=== PATIENT | female | born 1970 | race Caucasian/White ===

== ENCOUNTER 2018-05-20 20:12 | Observation (INO) | payer OTHER, BC ==
[2018-05-20 20:30] VITALS: BMI 29.1
--- NOTE | 2018-05-20 21:00 | ED PDOC ---
Arrival/HPI - General Chief Complaint: High Blood Pressure Time Seen by Provider: 05/20/18 20:18 Historian: Patient - History of Present Illness Narrative History of Present Illness (Text): 05/20/18 21:00 47 year old female, with no significant past medical history, presents to emergency department headache since this morning. Patient reports headache began while at work, which she describes to be intermittent and having a "flowing" sensation with occasional pinches to the top of the head. She states that her blood pressure was elevated when she checked at home around 5 pm and also notes tingling to the extremities. Patient states she is currently experiencing feelings of anxiety but denies any nausea, vomiting, chest pain, blurred vision, or any other complaints. Patient notes she is not using any medications. Time/Duration: Other (morning) Symptom Onset: Gradual Symptom Course: Unchanged Activities at Onset: Light Context: Home Past Medical History - Provider Review Nursing Documentation Reviewed: Yes - Psychiatric Hx Substance Use: No - Surgical History Hx Section: Yes (2002 & 2008) Other/Comment: Lap Band. Family/Social History - Physician Review Nursing Documentation Reviewed: Yes Family/Social History: Unknown Family HX Smoking Status: Never Smoked Hx Alcohol Use: No Hx Substance Use: No Allergies/Home Meds Allergies/Adverse Reactions: Allergies No Known Allergies Allergy (Verified 05/20/18 20:30) Home Medications: Home Meds Medication Instructions Recorded Confirmed No Known Home Med 05/20/18 05/20/18 Review of Systems - Physician Review All systems were reviewed & negative as marked: Yes - Review of Systems Constitutional: absent: Fevers Eyes: absent: Vision Changes Respiratory: absent: SOB, Cough Cardiovascular: absent: Chest Pain Gastrointestinal: absent: Abdominal Pain, Nausea, Vomiting Musculoskeletal: Other (tingling in hands, shoulder, feet ). absent: Back Pain, Neck Pain Skin: absent: Rash Neurological: Headache (top of head ) Physical Exam - Physical Exam Narrative Physical Exam (Text): 05/20/18 21:14 Gen: VS reviewed, alert, well developed, well nourished, nontoxic, mild distress Eye: EOMI, PERRL Neck: no JVD, supple, no adenopathy CV: regular rate, regular rhythm, no rubs,no murmur, S1, S2 Pulm: no distress, clear to auscultation, no wheeze, no rhonchi, breath sounds equal, no rales Abd: soft, nontender, no guarding, no rebound, no rigidity Ext: no edema Skin: good color, no rash, no cyanosis Psych: responds appropriately to questions, normal affect Neuro: oriented x3, CN2-12 intact grossly, motor intact, sensation intact Vital Signs Reviewed: Yes Vital Signs Temp Pulse Resp BP Pulse Ox 05/20/18 20:30 98.9 F 111 H 18 196/139 H 96 Temperature: Afebrile Blood Pressure: Normal Pulse: Regular Respiratory Rate: Normal Appearance: Positive for: Well-Appearing, Non-Toxic, Comfortable Pain Distress: None Mental Status: Positive for: Alert and Oriented X 3 Medical Decision Making ED Course and Treatment: 05/20/18 21:15 Impression: 47 year old female presents to emergency department for headache and high blood pressure. Plan: -- Reassess and disposition Prior Visits: Notes and results from previous visits were reviewed. Progress Notes: 05/21/18 01:04 -patient was seen for hypertension and headache. CT of the head was done to rule out ICH. Antihypertensives were ordered which lowered the blood pressure but after the second dose of hydralazine, the patient's heart rate increased to a sinus tachycardia. This is likely physiologic as a reflex tachcyardia. -admit accepted by dr. marcus. patient to be admitted for uncontrolled hypertension. consult to cardiology dr. richter. -incidentally, there is a sinus opacification seen on CT head. there is no associated fever or sinus tenderness to suggest an acute sinusitis. Patient is aware of this finding and understands to follow up with a ear,nose,throat doctor. 05/21/18 01:06 05/21/18 02:00 - RAD Interpretation Narrative RAD Interpretations (Text): 05/20/18 23:03 CT Head IMPRESSION: 1. No acute intracranial abnormality. 2. Total opacification of the right maxillary sinus thought compatible with chronic sinusitis or underlying soft tissue masss; such as mucous retention cyst or polyp. Electronically signed on May 20, 2018 11:03:53 PM EDT by: Ranulfo Garcia M.D., ANICETO Certified By [facility] [employer] [facility] Fellowship Trained MRI and CT Specialist Manager Ems: Radiologist - EKG Interpretation EKG Interpretation (Text): 05/21/18 00:37 21:14: nsr at 93 bpm, nml qrs, nml axis, lvh, no acute sttw abn Interpreted by ED Physician: Yes - Scribe Statement The provider has reviewed the documentation as recorded by the Scribe Trent Kim All medical record entries made by the Scribe were at my direction and personally dictated by me. I have reviewed the chart and agree that the record accurately reflects my personal performance of the history, physical exam, medical decision making, and the department course for this patient. I have also personally directed, reviewed, and agree with the discharge instructions and disposition. Disposition/Present on Arrival - Present on Arrival Any Indicators Present on Arrival: No History of DVT/PE: No History of Uncontrolled Diabetes: No Urinary Catheter: No History of Decub. Ulcer: No History Surgical Site Infection Following: None - Disposition Have Diagnosis and Disposition been Completed?: Yes Diagnosis: Hypertension Disposition: HOSPITALIZED Disposition Time: 01:06 Patient Plan: Admission Patient Problems: Current Active Problems Problem Status Onset Hypertension Acute Condition: GUARDED
[2018-05-20 21:20] LABS: BASO # 0.02 K/mm3 (0.0-2.0); BASO % 0.3 % (0.0-3.0); EOS # 0.1 (0.0-0.7); EOS % 1.9 % (1.5-5.0); HEMOGLOBIN 11.9 g/dL (12.0-16.0); LYMPH # 2.9 (1.2-3.4); LYMPH % 43.4 % (22.0-35.0); MEAN CELL VOLUME 78.4 fl (80.0-105.0); MEAN CORPUSCULAR HEMOGLOBIN 24.5 pg (25.0-35.0); MEAN CORPUSCULAR HGB CONC 31.3 g/dl (31.0-37.0); MEAN PLATELET VOLUME 9.5 fl (7.0-11.0); MONO # 0.4 (0.1-0.6); MONO % 5.6 % (1.0-6.0); RBC 4.85 10^6/uL (3.5-6.1); RED CELL DISTRIBUTION WIDTH 13.5 % (11.5-14.5); WHITE BLOOD COUNT 6.8 10^3/uL (4.5-11.0)
[2018-05-20 21:32] LABS: ALB/GLOB RATIO 1.1 (1.1-1.8); ALBUMIN 4.5 g/dL (3.0-4.8); ALT/SGPT 23 U/L (7-56); AST/SGOT 25 U/L (14-36); BLOOD UREA NITROGEN 9 mg/dL (7-21); CALCIUM 9.4 mg/dL (8.4-10.5); GFR NON-AFRICAN AMERICAN > 60
[2018-05-20 21:43] LABS: TROPONIN I < 0.01 ng/mL
--- NOTE | 2018-05-21 09:26 | CT ---
Date of service: 05/20/2018 PROCEDURE: CT HEAD WITHOUT CONTRAST. HISTORY: headache COMPARISON: None available. TECHNIQUE: Axial computed tomography images were obtained through the head/brain without intravenous contrast. Radiation dose: Total exam DLP = 967.47 mGy-cm. This CT exam was performed using one or more of the following dose reduction techniques: Automated exposure control, adjustment of the mA and/or kV according to patient size, and/or use of iterative reconstruction technique. FINDINGS: HEMORRHAGE: No intracranial hemorrhage. BRAIN: Moss-white matter differentiation is preserved. There is no mass, mass effect or abnormal extra-axial fluid collection. There is no territorial infarction. The midline sagittal structures are normal. VENTRICLES: The ventricles are normal in size, shape and configuration. CALVARIUM: There is no calvarial fracture or extracranial soft tissue swelling. There is mild hyperostosis frontalis interna. PARANASAL SINUSES: There is a large low-density soft tissue mass nearly completely acute finding the right maxillary sinus with mild expansion of the right maxillary sinus. The remaining included paranasal sinuses are clear. MASTOID AIR CELLS: Predominantly clear. OTHER FINDINGS: None. IMPRESSION: No acute intracranial abnormality. Large predominantly cystic lesion near completely acute moody the right maxillary sinus with expansion of the maxillary sinus which likely represents a retention cyst or mucosal. Clinical follow-up is advised. A preliminary report was provided by [facility]. A preliminary report was provided by [facility].
[2018-05-21 09:56] LABS: BLOOD UREA NITROGEN 10 mg/dL (7-21); CALCIUM 9.5 mg/dL (8.4-10.5); GFR NON-AFRICAN AMERICAN > 60
[2018-05-21 09:58] LABS: HEMOGLOBIN 12.3 g/dL (12.0-16.0); MEAN CELL VOLUME 79.2 fl (80.0-105.0); MEAN CORPUSCULAR HEMOGLOBIN 24.4 pg (25.0-35.0); MEAN CORPUSCULAR HGB CONC 30.8 g/dl (31.0-37.0); MEAN PLATELET VOLUME 9.7 fl (7.0-11.0); RBC 5.04 10^6/uL (3.5-6.1); RED CELL DISTRIBUTION WIDTH 13.7 % (11.5-14.5); WHITE BLOOD COUNT 7.8 10^3/uL (4.5-11.0)
--- NOTE | 2018-05-21 14:49 | CARD ---
APPROVED REPORT Date of service: 05/20/2018 EKG Measurement Heart [id number] <Conclusion> Sinus tachycardia Moderate voltage criteria for LVH, may be normal variant Cannot rule out Septal infarct, age undetermined Abnormal ECG
--- NOTE | 2018-05-21 14:53 | CARD ---
APPROVED REPORT Date of service: 05/20/2018 EKG Measurement Heart [id number] <Conclusion> Normal sinus rhythm Moderate voltage criteria for LVH, may be normal variant Cannot rule out Septal infarct, age undetermined Abnormal ECG
--- NOTE | 2018-05-21 17:15 | HP ---
DATE OF EXAM: 05/21/2018 HISTORY OF PRESENT ILLNESS: She is a nice 47-year-old female, who presented to the emergency room with severe headache that was intermittent, flowing pain to the top of her head. It has had about 24 hours before she came to the emergency room. Also, she is quite anxious. No nauseousness. No substance abuse. She has a in 2002 and 2008 and she had lap band surgery. FAMILY HISTORY: She has no family history. SOCIAL HISTORY: Nonsmoker. No drinking. No drugs. ALLERGIES: NO KNOWN DRUG ALLERGIES. MEDICATIONS: She does not take any medications at this time. She told me at one time, she took a blood pressure pill when she was , but not since then. REVIEW OF SYSTEMS: She has no fevers. No vision changes. No shortness of breath or cough. No chest pain. No abdominal pain. No nausea or vomiting. Questionable tingling in the hands, shoulders and feet, but no back pain or neck pain. She has had headache on the top of her head when she came in, it is better now. No rashes that she knows of. PHYSICAL EXAMINATION GENERAL: She is resting comfortably in bed. She gotten 2 to 3 doses of IV medications to lower the blood pressure. I started her on Norvasc. She is alert, well developed, well nourished, nontoxic, mild distress with the headache. VITAL SIGNS: She has a 98.9 temperature, 111 pulse, 18 respiratory rate, 196/139 blood pressure when she came in, 96% O2 sat. HEENT: Extraocular muscles are intact. Pupils equal and reactive to light. Throat is moist. NECK: Supple. HEART: Regular rate. Normal S1 and S2. LUNGS: Decreased breath sounds, but clear to auscultation. No wheezes, no rhonchi, no rales. ABDOMEN: Soft, nontender. Positive bowel sounds. Obese. No guarding, no rebound, no CVA tenderness. EXTREMITIES: With no edema. SKIN: For the most part, it is clear. No rashes or ulcers. NEUROLOGIC: Alert and oriented x3. Cranial nerves II-XII are grossly intact. Thyroid midline. No palpable appreciable lymphadenopathy. DIAGNOSTIC DATA: She had multiple tests done. CAT scan of the head interestingly enough showed no acute intracranial abnormality, large predominantly cystic lesion near completely acute pain in the right maxillary sinus into the maxillary sinus, I called ENT for their opinion. Also, she has 7.8 white count, 12.3 hemoglobin, 39.9 hematocrit with 302 platelets. A 142 sodium, potassium 3.7, BUN 10, creatinine 0.5, GFR is greater than 60, sugars 226, elevated. Calcium is 9.5, troponin I is less than 0.01. I called an ENT and Cardiology, waiting for Cardiology to see her if she had multiple doses of and Lopressor, I have started her on Norvasc. She plans to stay over one more night. I am hoping she will improve enough that she will be discharged tomorrow. Right now, she is here with elevated blood pressure, sinus cyst. Will see with Cardiology and ENT . Tex Krishnan DO MTDEvens
[2018-05-22 00:16] VITALS: O2SAT 98
--- NOTE | 2018-05-22 02:29 | CON ---
DATE OF CONSULTATION: 05/21/2018 This is a followup of an Endocrine Cardiology Consultation. REASON FOR CONSULTATION: Uncontrolled hypertension. HISTORY OF PRESENT ILLNESS: The patient is a 47-year-old female, who was diagnosed with hypertension in 2009, , and was treated for a few months and was taken off her blood pressure medications. She presented because of a headache, which is confined to the top part of the patient's head. No occipital headache or frontal headache. The patient reported uncontrolled hypertension. She denies any dizziness or blurry vision. The patient denies any nausea or vomiting. The patient is unaware of any prior cardiac history. SOCIAL HISTORY: Nonsmoker, nondrinker. MEDICATIONS: Norvasc 5 mg once a day, Tylenol 650 mg every 6 hours p.r.n. PHYSICAL EXAMINATION: GENERAL: The patient is a middle-aged female, who does not appear to be in acute distress. VITAL SIGNS: Blood pressure 126/79, heart rate 96, temperature 98, respirations 18. HEENT: Normocephalic. CHEST: Clear. HEART: S1 and S2 regular. ABDOMEN: Soft. EXTREMITIES: No edema. LABORATORY DATA: Today's hemoglobin and hematocrit are 12.3 and 39.5; white count and platelet count are within normal limits. SMA-7 is within normal limits except for a glucose of 126 and a creatinine of 0.5. Head CT scan without contrast, no acute intracranial abnormality, large predominately cystic lesion, nearly completely in the right maxillary sinus with expansion of the maxillary sinus, which likely represents a retention cyst. EKG revealed sinus rhythm with moderate voltage criteria for LVH. ASSESSMENT: 1. Uncontrolled hypertension. The initial blood pressure on admission was 196/89. 2. Diabetes mellitus. 3. A large maxillary sinus retention cyst. RECOMMENDATIONS: Continue current Norvasc 5 mg once a day. I recommend obtaining an echocardiographic study as well as CAT scan of the maxillary sinus. Bucky Dumont MD
[2018-05-22 06:56] VITALS: BP 110/76; RESP 21; TEMP 97.7
[2018-05-22 07:39] LABS: MEAN CELL VOLUME 78.9 fl (80.0-105.0); MEAN CORPUSCULAR HEMOGLOBIN 24.1 pg (25.0-35.0); MEAN CORPUSCULAR HGB CONC 30.6 g/dl (31.0-37.0); MEAN PLATELET VOLUME 9.8 fl (7.0-11.0); RBC 4.97 10^6/uL (3.5-6.1); RED CELL DISTRIBUTION WIDTH 13.6 % (11.5-14.5); WHITE BLOOD COUNT 7.1 10^3/uL (4.5-11.0)
[2018-05-22 08:01] LABS: ALB/GLOB RATIO 1.1 (1.1-1.8); ALBUMIN 4.2 g/dL (3.0-4.8); ALT/SGPT 16 U/L (7-56); AST/SGOT 23 U/L (14-36); BLOOD UREA NITROGEN 14 mg/dL (7-21); CALCIUM 9.4 mg/dL (8.4-10.5); GFR NON-AFRICAN AMERICAN > 60
--- NOTE | 2018-05-22 12:09 | DS ---
HISTORY OF PRESENT ILLNESS: I saw her this morning sitting up in the chair. She is doing much better. She feels well. No headache anymore at this time. She is on amlodipine 5 mg a day. PHYSICAL EXAMINATION VITAL SIGNS: Her blood pressure this morning is quite good at 110/76, 21 respiratory rate, 98% O2 sat, 97.7 temperature and a 77 pulse. HEENT: Head is atraumatic and normocephalic. HEART: Regular rate. LUNGS: Decreased breath sounds, but clear. ABDOMEN: Soft and obese. EXTREMITIES: No edema. LABORATORY DATA: She has a 7.1 white count, 12 hemoglobin, 39.2 hematocrit and with 267 platelets. Sodium 142, potassium 4, BUN 14, creatinine 0.5, GFR is greater than 60, sugar is 109, calcium is 9.4, total bili is 0.4, AST is 23, ALT is 16, alk phos 89 and total protein is 8.1. ASSESSMENT AND PLAN: She will be discharged today. She has hypertension and a frontal sinus cyst. Ear, Nose and Throat never came, we will send her for Ear, Nose and Throat on the outpatient. Admitted on observation. She has hypertension, she had a sinus cyst and she had a little bit of high blood sugars, which now came down to normal. She will be on amlodipine 5 mg. We will see her in the office in a week. She will be on a low-sugar and low-salt diet. Hopefully she will do very well. Tex Krishnan DO
[2018-05-22 13:18] VITALS: PULSE 80
--- NOTE | 2018-05-22 22:51 | CON ---
DATE: 05/22/2017 HOSPITAL COURSE: This is a consultation note, but patient was not seen in hospital. Patient was discharged prior to exam. Consultation was for examination of a CT scan and noted cyst on CT scan per Dr. Krishnan. This note is for Dr. Krishnan's review. Patient is a 47-year-old female with CT scan done secondary to hypertension and headache. A left-sided maxillary cyst was reviewed on CT scan. The cyst was large and noted to be a retention-like cyst with no bony erosion or mucocele, a noted deviation of the septum and narrowing of the nasal vestibule. This is all based on CT scan were noted. This patient will be notified from my office and follow up in my office. This patient will need further treatment. She is conservatively treated and discharged to home. This note is for Dr. Krishnan's discretion. Please place in chart. Alok Cade DO
== END 2018-05-22 13:30 | disposition home or self-care (01) ==
LOC: ED 20:12 → INTOOBSV 05-21 01:09 → ERH 05-21 01:09 → MERGE 05-21 01:09 → ERH 05-21 01:43 → 2RNO 05-21 03:12
PROVIDERS: ADMIT Family Medicine; ATTEND Family Medicine
DX: I10 Essential (primary) hypertension (principal); J34.1 Cyst and mucocele of nose and nasal sinus; E11.9 Type 2 diabetes mellitus without complications
CPT/HCPCS: 36415; 70450; 80048; 80053; 81025; 84484; 85025; 85027; 93005; 96374; 99285; G0378; J0360

== ENCOUNTER 2018-07-15 14:04 | Observation (INO) | payer OTHER, BC ==
[2018-07-15] MEDS ORDERED: Sodium Chloride 0.9% 1,000 ML IV STA (14:26)
[2018-07-15 14:50] LABS: BASO # 0.02 K/mm3 (0.0-2.0); BASO % 0.2 % (0.0-3.0); EOS # 0.2 (0.0-0.7); EOS % 2.4 % (1.5-5.0); HEMOGLOBIN 12.3 g/dL (12.0-16.0); LYMPH # 1.9 (1.2-3.4); LYMPH % 19.3 % (22.0-35.0); MEAN CELL VOLUME 78.9 fl (80.0-105.0); MEAN CORPUSCULAR HEMOGLOBIN 25.2 pg (25.0-35.0); MEAN CORPUSCULAR HGB CONC 31.9 g/dl (31.0-37.0); MEAN PLATELET VOLUME 9.1 fl (7.0-11.0); MONO # 0.4 (0.1-0.6); MONO % 4.3 % (1.0-6.0); RBC 4.89 10^6/uL (3.5-6.1); RED CELL DISTRIBUTION WIDTH 14.4 % (11.5-14.5); WHITE BLOOD COUNT 9.9 10^3/uL (4.5-11.0)
[2018-07-15 15:04] LABS: ALB/GLOB RATIO 1.1 (1.1-1.8); ALBUMIN 4.5 g/dL (3.0-4.8); ALT/SGPT 27 U/L (7-56); AST/SGOT 26 U/L (14-36); BLOOD UREA NITROGEN 15 mg/dL (7-21); CALCIUM 9.4 mg/dL (8.4-10.5); GFR NON-AFRICAN AMERICAN > 60
[2018-07-15 15:14] LABS: TROPONIN I < 0.01 ng/mL
[2018-07-15 15:20] LABS: FREE T4 1.1 ng/dL (0.78-2.19)
--- NOTE | 2018-07-15 15:52 | ED PDOC ---
Arrival/HPI - General Chief Complaint: Palpitations Time Seen by Provider: 07/15/18 14:21 Historian: Patient - History of Present Illness Narrative History of Present Illness (Text): 07/15/18 14:21 Eliezer Garrido is a 47 year old male, with a past medical history of hypertension, on norvasc 10mg daily and hydralazine prn per PMD, and left mastoid sinus cysts, who presents to the emergency department complaining of palpitations since last night. Patient describes palpitations as "fast" and notes "pinching" chest pain since a couple days. Patient also notes chills and feeling "warm" since last night. Patient appreciates abdominal pain secondary to lap band. Pt denies fevers, chills, shortness of breath, cough, abdominal pain, nausea, vomiting, diarrhea, dysuria, hematuria, dark / bloody stools, or any other complaints. 07/15/18 16:31 Time/Duration: Other (last night) Symptom Onset: Sudden Quality: Other (chest pain described as "pinching") Activities at Onset: Light Context: Home Past Medical History - Provider Review Nursing Documentation Reviewed: Yes - Infectious Disease Hx of Infectious Diseases: None - Reproductive Menopause: Yes - Cardiac Hx Hypertension: Yes (newly diagnosed) - Pulmonary Hx Respiratory Disorders: No - Neurological Hx Neurological Disorder: No - HEENT Hx HEENT Disorder: No - Renal Hx Renal Disorder: No - Endocrine/Metabolic Hx Endocrine Disorders: No - Hematological/Oncological Hx Blood Disorders: No - Integumentary Hx Dermatological Disorder: No - Musculoskeletal/Rheumatological Hx Musculoskeletal Disorders: No Hx Falls: No - Gastrointestinal Hx Gastrointestinal Disorders: No - Genitourinary/Gynecological Hx Genitourinary Disorders: No - Psychiatric Hx Psychophysiologic Disorder: No Hx Substance Use: No - Surgical History Hx Section: Yes (2002 & 2008) Other/Comment: Lap Band. - Anesthesia Hx Anesthesia: Yes Hx Anesthesia Reactions: No Hx Malignant Hyperthermia: No Family/Social History - Physician Review Nursing Documentation Reviewed: Yes Family/Social History: Unknown Family HX Smoking Status: Never Smoked Hx Alcohol Use: Yes (occassional) Hx Substance Use: No Allergies/Home Meds Allergies/Adverse Reactions: Allergies No Known Allergies Allergy (Verified 05/23/18 08:43) Review of Systems - Review of Systems Constitutional: absent: Fevers, Other (chills) Respiratory: absent: SOB, Cough Cardiovascular: Chest Pain ("pinching"), Palpitations (described "fast") Gastrointestinal: Abdominal Pain (secondary to lap band (chronic)). absent: Diarrhea, Nausea, Vomiting Genitourinary Female: absent: Dysuria, Hematuria Neurological: absent: Headache, Dizziness Psychiatric: absent: Anxiety, Depression Physical Exam Vital Signs Reviewed: Yes Vital Signs Temp Pulse Resp BP Pulse Ox 07/15/18 15:07 98.7 F 104 H 16 150/90 98 07/15/18 14:17 98 F 116 H 19 153/76 H 100 Temperature: Afebrile Blood Pressure: Normal Pulse: Tachycardic Respiratory Rate: Normal Appearance: Positive for: Well-Appearing, Non-Toxic, Comfortable Pain Distress: None Mental Status: Positive for: Alert and Oriented X 3 - Systems Exam Head: Present: Atraumatic, Normocephalic Pupils: Present: PERRL Extroacular Muscles: Present: EOMI Conjunctiva: Present: Normal Mouth: Present: Moist Mucous Membranes Neck: Present: Normal Range of Motion Respiratory/Chest: Present: Clear to Auscultation, Good Air Exchange. No: Respiratory Distress, Accessory Muscle Use, Wheezes, Rales, Rhonchi Cardiovascular: Present: Normal S1, S2, Tachycardic. No: Murmurs, Rub, Gallop Abdomen: Present: Normal Bowel Sounds. No: Tenderness, Distention, Peritoneal Signs, Rebound, Guarding Back: Present: Normal Inspection Upper Extremity: Present: Normal Inspection. No: Cyanosis, Edema Lower Extremity: Present: Normal Inspection. No: Edema Neurological: Present: GCS=15, CN II-XII Intact, Speech Normal Skin: Present: Warm, Dry, Normal Color. No: Rashes Psychiatric: Present: Alert, Oriented x 3, Normal Insight, Normal Concentration Medical Decision Making ED Course and Treatment: 07/15/18 14:21 Impression: Pt is a 47 year old female, with a past medical history of hypertension and left mastoid sinus cysts, who presents to the emergency department complaining of palpitations since last night. Plan: -- EKG -- Labs -- Chest X-Ray -- IV Fluids -- POC Urine -- Urinalysis w/ Micro -- Reassess and disposition Prior Visits: Notes and results from previous visits were reviewed. Progress Notes: 07/15/18 16:03 Cxray negative 07/15/18 16:09 D-dimer, troponin, thyroid negative. Labs show hematuria 07/15/18 16:39 EKG shows sinus tachytcarida at 114bpm with LVH. - Lab Interpretations Lab Results: D-Dimer, Quantitative < 200 ng/mlDDU (0-243) 07/15/18 14:45 Troponin I < 0.01 ng/mL 07/15/18 14:45 Total Bilirubin 0.4 mg/dL (0.2-1.3) 07/15/18 14:45 AST 26 U/L (14-36) 07/15/18 14:45 ALT 27 U/L (7-56) 07/15/18 14:45 Alkaline Phosphatase 96 U/L (38-126) 07/15/18 14:45 Total Protein 8.4 g/dL (5.8-8.3) H 07/15/18 14:45 Albumin 4.5 g/dL (3.0-4.8) 07/15/18 14:45 Globulin 3.9 gm/dL 07/15/18 14:45 Albumin/Globulin Ratio 1.1 (1.1-1.8) 07/15/18 14:45 - RAD Interpretation Radiology Orders: 07/15/18 14:25 CHEST PORTABLE [RAD] Stat - Medication Orders Current Medication Orders: Discontinued Medications Sodium Chloride (Sodium Chloride 0.9%) 1,000 mls @ 999 mls/hr IV .Q1H1M STA Stop: 07/15/18 15:26 Last Admin: 07/15/18 14:44 Dose: 999 mls/hr eMAR Start Stop Document 07/15/18 14:44 BB (Rec: 07/15/18 14:44 BB [id number]) Intravenous Solution Start Date 07/15/18 Start Time 14:44 - Scribe Statement The provider has reviewed the documentation as recorded by the Scribe Ranulfo Trujillo All medical record entries made by the Scribe were at my direction and personally dictated by me. I have reviewed the chart and agree that the record accurately reflects my personal performance of the history, physical exam, medical decision making, and the department course for this patient. I have also personally directed, reviewed, and agree with the discharge instructions and disposition. Disposition/Present on Arrival - Present on Arrival Any Indicators Present on Arrival: No History of DVT/PE: No History of Uncontrolled Diabetes: No Urinary Catheter: No History of Decub. Ulcer: No History Surgical Site Infection Following: None - Disposition Have Diagnosis and Disposition been Completed?: Yes Diagnosis: Hypertension, Palpitations Disposition: HOSPITALIZED Disposition Time: 16:43 Patient Plan: Observation Patient Problems: Current Active Problems Problem Status Onset Hypertension Acute Palpitations Acute Condition: FAIR Forms: [employer] (Setswana)
[2018-07-15 16:04] LABS: URINE BILIRUBIN NEGATIVE (NEGATIVE); URINE BLOOD MODERATE (NEGATIVE); URINE COLOR LIGHT YELLOW (YELLOW); URINE GLUCOSE (UA) 250 mg/dL (NEGATIVE); URINE LEUKOCYTE ESTERASE NEGATIVE Leu/uL (NEGATIVE); URINE PROTEIN 30 mg/dL (<30 mg/dL); URINE UROBILINOGEN 0.2 E.U./dL (<1 E.U./dL)
[2018-07-15 16:05] LABS: URINE APPEARANCE CLEAR (CLEAR)
--- NOTE | 2018-07-15 16:08 | RAD ---
Date of service: 07/15/2018 HISTORY: palpitations COMPARISON: No prior. TECHNIQUE: 1 view obtained. FINDINGS: LUNGS: No active pulmonary disease. PLEURA: No significant pleural effusion identified, no pneumothorax apparent. CARDIOVASCULAR: No aortic atherosclerotic calcification present. Normal cardiac size. No pulmonary vascular congestion. OSSEOUS STRUCTURES: No significant abnormalities. VISUALIZED UPPER ABDOMEN: Normal. OTHER FINDINGS: None. IMPRESSION: No active disease.
[2018-07-15 16:29] LABS: URINE BACTERIA MOD /hpf
[2018-07-15] MEDS ORDERED: Labetalol 5mg/ml (4ml) IV STA (16:32)
[2018-07-15 19:16] LABS: HDL CHOLESTEROL 31 mg/dL (29-60)
[2018-07-15 19:27] LABS: LDL CHOLESTEROL 195 mg/dL (0-129)
--- NOTE | 2018-07-15 19:32 | CARD ---
APPROVED REPORT Date of service: 07/15/2018 EKG Measurement Heart [id number] <Conclusion> Sinus tachycardia Minimal voltage criteria for LVH, may be normal variant Septal infarct, age undetermined Abnormal ECG
[2018-07-15] MEDS ORDERED: Pantoprazole 40 mg EC Tab PO SCH (20:00)
--- NOTE | 2018-07-15 22:30 | CP.PCM.HP ---
<AsadAdriano - Last Filed: 07/15/18 21:52> History of Present Illness - History of Present Illness History of Present Illness: Hospitalist Service H&P Adriano Kamara , PGY-3 CC: Chest pain and palpitations since last night This is a 47 yo F with PMH of HTN, obesity s/p gastric lap band, GERD, and PILAR on CPAP (admits non-compliance) who presents with complaint of palpitations and intermittent chest pain since last night. As per patient, normally on norvasc 5mg for BP control, but due to it remaining mildly elevated at doctors office, was given a prescription for PRN hydralazine. Woke up last night short of breath, felt some palpitations, checked her pressure and found it to be elevated, so she took a dose of the hydralazine, but then after laying down, she felt like the palpitations had worsened. Reports this is the only dose of hydralazine she has used. She describes her chest pain as little shocks that intermittently occurred at different areas of her chest wall bilaterally (she also reports a similar pain in her foot at least once). Neither chest pain nor palpitations are exertional, and chest pain is not present at time of my exam. Denies fevers, chills, nausea, emesis, current chest pain, shortness of breath, dysuria, hematuria, diarrhea, constipation, focal/global weakness, syncope/near- syncope. Of note, pt admits to non-compliance with home CPAP for PILAR for > 1 month, and as per patient and partner at bedside, patient snores loudly with apnic pauses. 12-system ROS reviewed and negative, except as above. EKG in the ED on arrival notable for sinus tachycardia at 114. PMH: as above PSH: Gastric lap band (2011), x2 Fam Hx: Brother (age 36) with [place] 2 weeks ago, extensive hx of Heart Failure in family as per pt Soc Hx: denies tobacco, illicits; admits social EtOH (less than 1-2 times per month) PMD: Dr. Camacho Present on Admission - Present on Admission Any Indicators Present on Admission: No History of DVT/PE: No History of Uncontrolled Diabetes: No Review of Systems - Review of Systems All systems: reviewed and no additional remarkable complaints except (as per HPI) Past Patient History - Infectious Disease Hx of Infectious Diseases: None - Past Social History Smoking Status: Never Smoked - CARDIAC Hx Hypertension: Yes (newly diagnosed) - PULMONARY Hx Respiratory Disorders: No - NEUROLOGICAL Hx Neurological Disorder: No - HEENT Hx HEENT Problems: No - RENAL Hx Chronic Kidney Disease: No - ENDOCRINE/METABOLIC Hx Endocrine Disorders: No - HEMATOLOGICAL/ONCOLOGICAL Hx Blood Disorders: No - INTEGUMENTARY Hx Dermatological Problems: No - MUSCULOSKELETAL/RHEUMATOLOGICAL Hx Musculoskeletal Disorders: No Hx Falls: No - GASTROINTESTINAL Hx Gastrointestinal Disorders: No - GENITOURINARY/GYNECOLOGICAL Hx Genitourinary Disorders: No - PSYCHIATRIC Hx Psychophysiologic Disorder: No Hx Substance Use: No - SURGICAL HISTORY Hx Section: Yes (2002 & 2008) Other/Comment: Lap Band. - ANESTHESIA Hx Anesthesia: Yes Hx Anesthesia Reactions: No Hx Malignant Hyperthermia: No Meds Allergies/Adverse Reactions: Allergies Allergy/AdvReac Type Severity Reaction Status Date / Time No Known Allergies Allergy Verified 05/23/18 08:43 Physical Exam - Constitutional Appears: Non-toxic, No Acute Distress - Head Exam Head Exam: ATRAUMATIC, NORMAL INSPECTION, NORMOCEPHALIC - Eye Exam Eye Exam: Normal appearance. absent: Conjunctival injection, Scleral icterus Pupil Exam: absent: Irregular, Unequal - ENT Exam ENT Exam: Mucous Membranes Moist Additional comments: Mallampati class 3 airway - Neck Exam Neck exam: Negative for: Lymphadenopathy, Thyromegaly Additional comments: Bull neck - Respiratory Exam Respiratory Exam: Clear to Auscultation Bilateral, NORMAL BREATHING PATTERN. absent: Decreased Breath Sounds, Rales, Rhonchi, Wheezes - Cardiovascular Exam Cardiovascular Exam: REGULAR RHYTHM, RRR, +S1, +S2. absent: Bradycardia, Tac hycardia, Irregular Rhythm, JVD, +S4 Additional comments: HR 90's on bedside monitor throughout exam - GI/Abdominal Exam GI & Abdominal Exam: Normal Bowel Sounds, Soft. absent: Diminished Bowel Sounds, Distended, Firm, Hyperactive Bowel Sounds, Hypoactive Bowel Sounds, Rigid, Tenderness - Extremities Exam Extremities exam: Positive for: normal capillary refill, normal inspection, pedal pulses present. Negative for: calf tenderness, pedal edema, tenderness - Neurological Exam Additional comments: awake and alert, moving all extremities spontaneously follows all commands appropriately - Psychiatric Exam Psychiatric exam: Normal Affect, Normal Mood - Skin Skin Exam: Dry, Intact, Normal Color, Warm Results - Vital Signs Recent Vital Signs: Last Vital Signs Temp 98.9 F 07/15/18 18:33 Pulse 85 07/15/18 18:33 Resp 18 07/15/18 18:33 BP 133/90 07/15/18 18:33 Pulse Ox 98 07/15/18 18:33 - Labs Result Diagrams: 07/15/18 14:45 07/15/18 14:45 Labs: Laboratory Results - last 24 hr 07/15/18 07/15/18 07/15/18 14:45 14:45 14:45 WBC 9.9 D RBC 4.89 Hgb 12.3 Hct 38.6 MCV 78.9 L MCH 25.2 MCHC 31.9 RDW 14.4 Plt Count 290 MPV 9.1 Neut % (Auto) 73.8 H Lymph % (Auto) 19.3 L Sherman % (Auto) 4.3 Eos % (Auto) 2.4 Baso % (Auto) 0.2 Lymph # (Auto) 1.9 Sherman # (Auto) 0.4 Eos # (Auto) 0.2 Baso # (Auto) 0.02 Absolute Neuts (auto) 7.33 H D-Dimer, Quantitative < 200 Sodium 142 Potassium 4.2 Chloride 104 Carbon Dioxide 25 Anion Gap 16 BUN 15 Creatinine 0.6 L Est GFR ( Amer) > 60 Est GFR (Non-Af Amer) > 60 Random Glucose 208 H Calcium 9.4 Phosphorus 4.5 Magnesium 1.9 Total Bilirubin 0.4 AST 26 ALT 27 Alkaline Phosphatase 96 Lactate Dehydrogenase 421 Total Creatine Kinase 92 Troponin I < 0.01 Total Protein 8.4 H Albumin 4.5 Globulin 3.9 Albumin/Globulin Ratio 1.1 Triglycerides Cholesterol LDL Cholesterol Direct HDL Cholesterol Free T4 TSH 3rd Generation Urine Color Urine Appearance Urine pH Ur Specific [place] Urine Protein Urine Glucose (UA) Urine Ketones Urine Blood Urine Nitrate Urine Bilirubin Urine Urobilinogen Ur Leukocyte Esterase Urine RBC Urine WBC Ur Epithelial Cells Urine Bacteria Urine Other 07/15/18 07/15/18 07/15/18 14:45 14:45 15:40 WBC RBC Hgb Hct MCV MCH MCHC RDW Plt Count MPV Neut % (Auto) Lymph % (Auto) Sherman % (Auto) Eos % (Auto) Baso % (Auto) Lymph # (Auto) Sherman # (Auto) Eos # (Auto) Baso # (Auto) Absolute Neuts (auto) D-Dimer, Quantitative Sodium Potassium Chloride Carbon Dioxide Anion Gap BUN Creatinine Est GFR ( Amer) Est GFR (Non-Af Amer) Random Glucose Calcium Phosphorus Magnesium Total Bilirubin AST ALT Alkaline Phosphatase Lactate Dehydrogenase Total Creatine Kinase Troponin I Total Protein Albumin Globulin Albumin/Globulin Ratio Triglycerides 122 Cholesterol 242 H LDL Cholesterol Direct 195 H HDL Cholesterol 31 Free T4 1.10 TSH 3rd Generation 1.06 Urine Color Light yellow Urine Appearance Clear Urine pH 6.0 Ur Specific [place] >= 1.030 Urine Protein 30 H Urine Glucose (UA) 250 H Urine Ketones Negative Urine Blood Moderate H Urine Nitrate Negative Urine Bilirubin Negative Urine Urobilinogen 0.2 Ur Leukocyte Esterase Negative Urine RBC 5 - 10 H Urine WBC 2 - 5 Ur Epithelial Cells 6 - 8 H Urine Bacteria Mod Urine Other Mucus Assessment & Plan - Assessment and Plan (Free Text) Assessment: This is a 47 yo F with PMH of HTN, obesity s/p gastric lap band, GERD, and PILAR on CPAP (admits non-compliance) who presents with complaint of palpitations and intermittent chest pain since last night. Patient is being admitted for ACS r/o. Plan: 1) Chest pain/palpitations 2) Sinus tachycardia 3) HTN 4) PILAR non-compliant with CPAP 5) Lap-band gastrectomy with GERD -Chest pain non-focal and presenting in area of foot suggests less likely cardiac chest pain, but female patient so increased risk of atypical chest pain -Palpitations/Sinus tachycardia ddx: adverse effect of hydralazine vs 2/2 PILAR noncompliant with CPAP vs Reflux vs ACS -Initial trop negative, will trend 2 more q8 -EKG show sinus tachycardia at 114, but no ST elevations or depressions, will repeat EKG again in AM -Echo ordered, f/u -Cardio consulted (Dr. Velasquez), appreciate all recs -Ordered CPAP for patient while remains inpt, pt reports she will be compliant Explained purpose of CPAP for PILAR, cardiovascular risks associated with PILAR, stressed need for compliance with CPAP, patient reports will resume use -Protonix 40mg PO qHS for intermittent GERD sx Reflux may be contributing to shortness of breath and chest discomfort, but unlikely primary cause -Metoprolol 25mg PO BID ordered given tachycardia Continue amlodipine for HTN, but with hold parameters added Patient seen, reviewed, and discussed with attending, Dr. Kohli <Bubba Kohli - Last Filed: 07/16/18 13:32> Results - Vital Signs Recent Vital Signs: Last Vital Signs Temp 98.4 F 07/16/18 06:00 Pulse 94 H 07/16/18 10:00 Resp 20 07/16/18 06:00 BP 140/92 H 07/16/18 11:22 Pulse Ox 100 07/16/18 06:00 - Labs Result Diagrams: 07/16/18 06:00 07/16/18 06:00 Labs: Laboratory Results - last 24 hr 07/15/18 07/15/18 07/15/18 14:45 14:45 14:45 WBC 9.9 D RBC 4.89 Hgb 12.3 Hct 38.6 MCV 78.9 L MCH 25.2 MCHC 31.9 RDW 14.4 Plt Count 290 MPV 9.1 Neut % (Auto) 73.8 H Lymph % (Auto) 19.3 L Sherman % (Auto) 4.3 Eos % (Auto) 2.4 Baso % (Auto) 0.2 Lymph # (Auto) 1.9 Sherman # (Auto) 0.4 Eos # (Auto) 0.2 Baso # (Auto) 0.02 Absolute Neuts (auto) 7.33 H D-Dimer, Quantitative < 200 Sodium 142 Potassium 4.2 Chloride 104 Carbon Dioxide 25 Anion Gap 16 BUN 15 Creatinine 0.6 L Est GFR ( Amer) > 60 Est GFR (Non-Af Amer) > 60 Random Glucose 208 H Calcium 9.4 Phosphorus 4.5 Magnesium 1.9 Total Bilirubin 0.4 AST 26 ALT 27 Alkaline Phosphatase 96 Lactate Dehydrogenase 421 Total Creatine Kinase 92 Troponin I < 0.01 Total Protein 8.4 H Albumin 4.5 Globulin 3.9 Albumin/Globulin Ratio 1.1 Triglycerides Cholesterol LDL Cholesterol Direct HDL Cholesterol Free T4 TSH 3rd Generation Urine Color Urine Appearance Urine pH Ur Specific [place] Urine Protein Urine Glucose (UA) Urine Ketones Urine Blood Urine Nitrate Urine Bilirubin Urine Urobilinogen Ur Leukocyte Esterase Urine RBC Urine WBC Ur Epithelial Cells Urine Bacteria Urine Other 07/15/18 07/15/18 07/15/18 14:45 14:45 15:40 WBC RBC Hgb Hct MCV MCH MCHC RDW Plt Count MPV Neut % (Auto) Lymph % (Auto) Sherman % (Auto) Eos % (Auto) Baso % (Auto) Lymph # (Auto) Sherman # (Auto) Eos # (Auto) Baso # (Auto) Absolute Neuts (auto) D-Dimer, Quantitative Sodium Potassium Chloride Carbon Dioxide Anion Gap BUN Creatinine Est GFR ( Amer) Est GFR (Non-Af Amer) Random Glucose Calcium Phosphorus Magnesium Total Bilirubin AST ALT Alkaline Phosphatase Lactate Dehydrogenase Total Creatine Kinase Troponin I Total Protein Albumin Globulin Albumin/Globulin Ratio Triglycerides 122 Cholesterol 242 H LDL Cholesterol Direct 195 H HDL Cholesterol 31 Free T4 1.10 TSH 3rd Generation 1.06 Urine Color Light yellow Urine Appearance Clear Urine pH 6.0 Ur Specific [place] >= 1.030 Urine Protein 30 H Urine Glucose (UA) 250 H Urine Ketones Negative Urine Blood Moderate H Urine Nitrate Negative Urine Bilirubin Negative Urine Urobilinogen 0.2 Ur Leukocyte Esterase Negative Urine RBC 5 - 10 H Urine WBC 2 - 5 Ur Epithelial Cells 6 - 8 H Urine Bacteria Mod Urine Other Mucus 07/15/18 07/16/18 07/16/18 22:27 06:00 06:00 WBC 7.7 D RBC 4.51 Hgb 11.1 L Hct 35.7 L MCV 79.2 L MCH 24.6 L MCHC 31.1 RDW 14.4 Plt Count 279 MPV 9.1 Neut % (Auto) 58.1 Lymph % (Auto) 32.8 Sherman % (Auto) 5.1 Eos % (Auto) 3.5 Baso % (Auto) 0.5 Lymph # (Auto) 2.5 Sherman # (Auto) 0.4 Eos # (Auto) 0.3 Baso # (Auto) 0.04 Absolute Neuts (auto) 4.45 D-Dimer, Quantitative Sodium 141 Potassium 4.2 Chloride 107 Carbon Dioxide 25 Anion Gap 12 BUN 14 Creatinine 0.5 L Est GFR ( Amer) > 60 Est GFR (Non-Af Amer) > 60 Random Glucose 108 Calcium 8.8 Phosphorus 4.5 Magnesium 2.1 Total Bilirubin 0.5 AST 24 ALT 23 Alkaline Phosphatase 81 Lactate Dehydrogenase Total Creatine Kinase Troponin I < 0.01 < 0.01 Total Protein 7.4 Albumin 3.8 Globulin 3.6 Albumin/Globulin Ratio 1.1 Triglycerides Cholesterol LDL Cholesterol Direct HDL Cholesterol Free T4 TSH 3rd Generation Urine Color Urine Appearance Urine pH Ur Specific [place] Urine Protein Urine Glucose (UA) Urine Ketones Urine Blood Urine Nitrate Urine Bilirubin Urine Urobilinogen Ur Leukocyte Esterase Urine RBC Urine WBC Ur Epithelial Cells Urine Bacteria Urine Other Attending/Attestation - Attestation I have personally seen and examined this patient.: Yes I have fully participated in the care of the patient.: Yes I have reviewed all pertinent clinical information: Yes Notes (Text): 07/16/18 13:28 Attending note; Patient seen and examined with resident in ER. Patient is alert and awake. Patient's by the bedside. Patient had episodes of palpitation at home. Currently denies any chest pain, shortness of breath. Denies any fevers, chills. Denies any urinary, bowel symptoms Patient is a 47-year-old female with PMH of HTN, obesity s/p gastric lap band, GERD, and PILAR on CPAP (admits non-compliance) who presents with complaint of palpitations and intermittent chest pain since last night. 1. Palpitations with chest discomfort; patient was recently started on hydra lazine. Patient usually takes Norvasc 10 mg at home. Because of elevated blood pressure in the doctor's office patient was prescribed hydralazine. Patient took 1 dose of hydralazine last night. Currently heart rate is improving. Started on metoprolol. Check enzymes x3 ordered. Echocardiogram ordered . Patient has stress test arranged at [facility] next Wednesday by Dr. Mo KING. 2. Hypertension; Continue metoprolol and Norvasc . 3. Sleep Apnea; continue CPAP. Compliance insisted in detail. Admit to telemetry. Monitor closely Possible discharge home tomorrow if stable.
[2018-07-15 23:17] VITALS: BMI 29.8
[2018-07-15] MEDS ORDERED: Pneumococcal 23-Valent Vaccine IM ONE (23:17)
[2018-07-16 00:47] VITALS: O2SAT 100
[2018-07-16 06:22] VITALS: RESP 20; TEMP 98.4
[2018-07-16 06:41] LABS: ALB/GLOB RATIO 1.1 (1.1-1.8); ALBUMIN 3.8 g/dL (3.0-4.8); ALT/SGPT 23 U/L (7-56); AST/SGOT 24 U/L (14-36); BLOOD UREA NITROGEN 14 mg/dL (7-21); CALCIUM 8.8 mg/dL (8.4-10.5); GFR NON-AFRICAN AMERICAN > 60
[2018-07-16 06:51] LABS: TROPONIN I < 0.01 ng/mL
[2018-07-16 07:04] LABS: BASO # 0.04 K/mm3 (0.0-2.0); BASO % 0.5 % (0.0-3.0); EOS # 0.3 (0.0-0.7); EOS % 3.5 % (1.5-5.0); HEMOGLOBIN 11.1 g/dL (12.0-16.0); LYMPH # 2.5 (1.2-3.4); LYMPH % 32.8 % (22.0-35.0); MEAN CELL VOLUME 79.2 fl (80.0-105.0); MEAN CORPUSCULAR HEMOGLOBIN 24.6 pg (25.0-35.0); MEAN CORPUSCULAR HGB CONC 31.1 g/dl (31.0-37.0); MEAN PLATELET VOLUME 9.1 fl (7.0-11.0); MONO # 0.4 (0.1-0.6); MONO % 5.1 % (1.0-6.0); RBC 4.51 10^6/uL (3.5-6.1); RED CELL DISTRIBUTION WIDTH 14.4 % (11.5-14.5); WHITE BLOOD COUNT 7.7 10^3/uL (4.5-11.0)
--- NOTE | 2018-07-16 11:11 | CON ---
DATE OF CONSULTATION: 07/16/2018 CARDIOLOGY CONSULTATION HISTORY: The patient is a 47-year-old woman with history of hypertension, who became markedly anxious with palpitations after being visited by her primary care doctor. The patient's past medical history is chronic palpitations, but nothing documented, no arrhythmias documented. She does suffer from hypertension. PAST MEDICAL HISTORY: Her past medical history is free of cardiac disease. She denies chest pain, denies shortness of breath. No previous myocardial infarction. No diabetes mellitus. SOCIAL HISTORY: She denies smoking and no drugs. REVIEW OF SYSTEMS: Review of systems is free of cardiac symptoms other than palpitations and anxiety. PHYSICAL EXAMINATION: VITAL SIGNS: Blood pressure is 119/79, the heart rate is in the 80s. NECK: Negative JVD. LUNGS: Without rales. CARDIAC: Heart rate S1, S2. EXTREMITIES: Without edema. LABORATORY DATA: Troponins are negative x2. The cholesterol is 242. The hemoglobin is 11.1. IMPRESSION: 1. Palpitations. 2. Hypertension. 3. Hypercholesterolemia. 4. Borderline anemia. PLAN: Given these findings, there are no acute cardiac issues at this time with resolution of palpitations without evidence for arrhythmias. The patient is for echocardiogram. If the echo is okay, the patient can be discharged. She needs to follow up with her primary care doctor. The patient needs a stress test to completely evaluate her heart. Stiven Harvey MD
[2018-07-16 11:22] VITALS: BP 140/92
[2018-07-16 11:48] VITALS: PULSE 94
--- NOTE | 2018-07-16 13:22 | CP.PCM.DIS ---
<FredisJay holden - Last Filed: 07/16/18 13:14> Provider - Provider Date of Admission: 07/15/18 16:38 Attending physician: Bubba Kohli MD Consults: 07/15/18 18:25 Cardiology Consult Routine Comment: Consulting Provider: Simon Velasquez Consulting Physician: Simon Velasquez Reason for Consult: SOB, palpitations, HTN, extensive fam cardiac hx 07/15/18 23:17 Inpatient FACILITY MAINTENANCE MECHANIC Core Measures Referral Routine Comment: palpitations/sinus tach Physician Instructions: Reason For Exam: assess Transition In Care/Readmission Reduction Routine Comment: palpitations/sinus tach Physician Instructions: Reason For Exam: assess Time Spent in preparation of Discharge (in minutes): 45 Hospital Course - Lab Results Lab Results: Most Recent Lab Values WBC 7.7 10^3/uL (4.5-11.0) D 07/16/18 06:00 RBC 4.51 10^6/uL (3.5-6.1) 07/16/18 06:00 Hgb 11.1 g/dL (12.0-16.0) L 07/16/18 06:00 Hct 35.7 % (36.0-48.0) L 07/16/18 06:00 MCV 79.2 fl (80.0-105.0) L 07/16/18 06:00 MCH 24.6 pg (25.0-35.0) L 07/16/18 06:00 MCHC 31.1 g/dl (31.0-37.0) 07/16/18 06:00 RDW 14.4 % (11.5-14.5) 07/16/18 06:00 Plt Count 279 10^3/uL (120.0-450.0) 07/16/18 06:00 MPV 9.1 fl (7.0-11.0) 07/16/18 06:00 Neut % (Auto) 58.1 % (50.0-68.0) 07/16/18 06:00 Lymph % (Auto) 32.8 % (22.0-35.0) 07/16/18 06:00 [place] % (Auto) 5.1 % (1.0-6.0) 07/16/18 06:00 Eos % (Auto) 3.5 % (1.5-5.0) 07/16/18 06:00 Baso % (Auto) 0.5 % (0.0-3.0) 07/16/18 06:00 Lymph # (Auto) 2.5 (1.2-3.4) 07/16/18 06:00 [place] # (Auto) 0.4 (0.1-0.6) 07/16/18 06:00 Eos # (Auto) 0.3 (0.0-0.7) 07/16/18 06:00 Baso # (Auto) 0.04 K/mm3 (0.0-2.0) 07/16/18 06:00 Absolute Neuts (auto) 4.45 (1.4-6.5) 07/16/18 06:00 D-Dimer, Quantitative < 200 ng/mlDDU (0-243) 07/15/18 14:45 Sodium 141 mmol/L (132-148) 07/16/18 06:00 Potassium 4.2 mmol/L (3.6-5.0) 07/16/18 06:00 Chloride 107 mmol/L (98-107) 07/16/18 06:00 Carbon Dioxide 25 mmol/L (21-33) 07/16/18 06:00 Anion Gap 12 (10-20) 07/16/18 06:00 BUN 14 mg/dL (7-21) 07/16/18 06:00 Creatinine 0.5 mg/dl (0.7-1.2) L 07/16/18 06:00 Est GFR ( Amer) > 60 07/16/18 06:00 Est GFR (Non-Af Amer) > 60 07/16/18 06:00 Random Glucose 108 mg/dL (70-110) 07/16/18 06:00 Calcium 8.8 mg/dL (8.4-10.5) 07/16/18 06:00 Phosphorus 4.5 mg/dL (2.5-4.5) 07/16/18 06:00 Magnesium 2.1 mg/dL (1.7-2.2) 07/16/18 06:00 Total Bilirubin 0.5 mg/dL (0.2-1.3) 07/16/18 06:00 AST 24 U/L (14-36) 07/16/18 06:00 ALT 23 U/L (7-56) 07/16/18 06:00 Alkaline Phosphatase 81 U/L (38-126) 07/16/18 06:00 Lactate Dehydrogenase 421 U/L (333-699) 07/15/18 14:45 Total Creatine Kinase 92 U/L (35-230) 07/15/18 14:45 Troponin I < 0.01 ng/mL 07/16/18 06:00 Total Protein 7.4 g/dL (5.8-8.3) 07/16/18 06:00 Albumin 3.8 g/dL (3.0-4.8) 07/16/18 06:00 Globulin 3.6 gm/dL 07/16/18 06:00 Albumin/Globulin Ratio 1.1 (1.1-1.8) 07/16/18 06:00 Triglycerides 122 mg/dL (35-160) 07/15/18 14:45 Cholesterol 242 mg/dL (130-200) H 07/15/18 14:45 LDL Cholesterol Direct 195 mg/dL (0-129) H 07/15/18 14:45 HDL Cholesterol 31 mg/dL (29-60) 07/15/18 14:45 Free T4 1.10 ng/dL (0.78-2.19) 07/15/18 14:45 TSH 3rd Generation 1.06 mIU/mL (0.46-4.68) 07/15/18 14:45 Urine Color Light yellow (YELLOW) 07/15/18 15:40 Urine Appearance Clear (CLEAR) 07/15/18 15:40 Urine pH 6.0 (4.7-8.0) 07/15/18 15:40 Ur Specific [place] >= 1.030 (1.005-1.035) 07/15/18 15:40 Urine Protein 30 mg/dL (<30 mg/dL) H 07/15/18 15:40 Urine Glucose (UA) 250 mg/dL (NEGATIVE) H 07/15/18 15:40 Urine Ketones Negative mg/dL (NEGATIVE) 07/15/18 15:40 Urine Blood Moderate (NEGATIVE) H 07/15/18 15:40 Urine Nitrate Negative (NEGATIVE) 07/15/18 15:40 Urine Bilirubin Negative (NEGATIVE) 07/15/18 15:40 Urine Urobilinogen 0.2 E.U./dL (<1 E.U./dL) 07/15/18 15:40 Ur Leukocyte Esterase Negative Jose/uL (NEGATIVE) 07/15/18 15:40 Urine RBC 5 - 10 /hpf (0-2) H 07/15/18 15:40 Urine WBC 2 - 5 /hpf (0-6) 07/15/18 15:40 Ur Epithelial Cells 6 - 8 /hpf (0-5) H 07/15/18 15:40 Urine Bacteria Mod /hpf (NONE) 07/15/18 15:40 Urine Other Mucus /hpf 07/15/18 15:40 - Hospital Course Hospital Course: 47 yo F with PMH of HTN, obesity s/p gastric lap band, GERD, and PILAR on CPAP (admits non-compliance) who presents with complaint of palpitations and intermittent chest pain since last night. Patient admitted for chest pain r/o ACS. EKG was sinus tachy @ 114 troponins negative x3, D-dimer negative, CXR showed no active disease. Echo showed EF of 65% Patient was seen by sequins slinger Dr Harvey who recommended outpatient cardiac stress test. Blood glucose and cholesterol levels were elevated this admission, patient was counseled on tight glycemic control and low cholesterol dietand to repeat lab work in 1-3 months. Patient was hemodynamically stable, afebrile, chest pain/palpitations improved. She is clinically stabilized for home discharge today. Discharge Exam - Head Exam Head Exam: ATRAUMATIC, NORMAL INSPECTION, NORMOCEPHALIC - Eye Exam Eye Exam: EOMI, Normal appearance, PERRL Pupil Exam: NORMAL ACCOMODATION, PERRL - ENT Exam ENT Exam: Mucous Membranes Moist - Neck Exam Neck exam: Normal Inspection - Respiratory Exam Respiratory Exam: Clear to PA & Lateral, NORMAL BREATHING PATTERN - Cardiovascular Exam Cardiovascular Exam: +S1, +S2 - GI/Abdominal Exam GI & Abdominal Exam: Normal Bowel Sounds, Soft - Extremities Exam Extremities exam: normal capillary refill, pedal pulses present - Back Exam Back exam: FULL ROM, NORMAL INSPECTION - Neurological Exam Neurological exam: Alert, CN II-XII Intact, Normal Gait, Oriented x3, Reflexes Normal - Psychiatric Exam Psychiatric exam: Normal Affect, Normal Mood - Skin Skin Exam: Dry, Intact, Normal Color, Warm Discharge Plan - Follow Up Plan Condition: FAIR Disposition: HOME/ ROUTINE Instructions: High Blood Pressure (DC) Additional Instructions: Follow up with your primary care doctor Norma in 3-5 days. [place] [facility] [place] Wednesday, [place], [place]. You can continue using your cpap machine at home. Continue using your Norvasc 10 mg 1 tablet daily at home. Your blood glucose and cholesterol levels were elevated this admission. Please maintain a low glucose, low cholesterol diet. Repeat laboratory work in 1-3 months. Your urine showed some blood. Please repeat urine testing with your primary care doctor if you notice any urinary symptoms, or blood in urine. Return to the ER for any worsening symptoms. Referrals: Wlilie Camacho MD [Family Provider] - <Bubba Kohli - Last Filed: 07/16/18 13:43> Provider - Provider Date of Admission: 07/15/18 16:38 Attending physician: Bubba Kohli MD Consults: 07/15/18 18:25 Cardiology Consult Routine Comment: Consulting Provider: Simon Velasquez Consulting Physician: Simon Velasquez Reason for Consult: SOB, palpitations, HTN, extensive fam cardiac hx 07/15/18 23:17 Inpatient FACILITY MAINTENANCE MECHANIC Core Measures Referral Routine Comment: palpitations/sinus tach Physician Instructions: Reason For Exam: assess Transition In Care/Readmission Reduction Routine Comment: palpitations/sinus tach Physician Instructions: Reason For Exam: assess Hospital Course - Lab Results Lab Results: Most Recent Lab Values WBC 7.7 10^3/uL (4.5-11.0) D 07/16/18 06:00 RBC 4.51 10^6/uL (3.5-6.1) 07/16/18 06:00 Hgb 11.1 g/dL (12.0-16.0) L 07/16/18 06:00 Hct 35.7 % (36.0-48.0) L 07/16/18 06:00 MCV 79.2 fl (80.0-105.0) L 07/16/18 06:00 MCH 24.6 pg (25.0-35.0) L 07/16/18 06:00 MCHC 31.1 g/dl (31.0-37.0) 07/16/18 06:00 RDW 14.4 % (11.5-14.5) 07/16/18 06:00 Plt Count 279 10^3/uL (120.0-450.0) 07/16/18 06:00 MPV 9.1 fl (7.0-11.0) 07/16/18 06:00 Neut % (Auto) 58.1 % (50.0-68.0) 07/16/18 06:00 Lymph % (Auto) 32.8 % (22.0-35.0) 07/16/18 06:00 [place] % (Auto) 5.1 % (1.0-6.0) 07/16/18 06:00 Eos % (Auto) 3.5 % (1.5-5.0) 07/16/18 06:00 Baso % (Auto) 0.5 % (0.0-3.0) 07/16/18 06:00 Lymph # (Auto) 2.5 (1.2-3.4) 07/16/18 06:00 [place] # (Auto) 0.4 (0.1-0.6) 07/16/18 06:00 Eos # (Auto) 0.3 (0.0-0.7) 07/16/18 06:00 Baso # (Auto) 0.04 K/mm3 (0.0-2.0) 07/16/18 06:00 Absolute Neuts (auto) 4.45 (1.4-6.5) 07/16/18 06:00 D-Dimer, Quantitative < 200 ng/mlDDU (0-243) 07/15/18 14:45 Sodium 141 mmol/L (132-148) 07/16/18 06:00 Potassium 4.2 mmol/L (3.6-5.0) 07/16/18 06:00 Chloride 107 mmol/L (98-107) 07/16/18 06:00 Carbon Dioxide 25 mmol/L (21-33) 07/16/18 06:00 Anion Gap 12 (10-20) 07/16/18 06:00 BUN 14 mg/dL (7-21) 07/16/18 06:00 Creatinine 0.5 mg/dl (0.7-1.2) L 07/16/18 06:00 Est GFR ( Amer) > 60 07/16/18 06:00 Est GFR (Non-Af Amer) > 60 07/16/18 06:00 Random Glucose 108 mg/dL (70-110) 07/16/18 06:00 Calcium 8.8 mg/dL (8.4-10.5) 07/16/18 06:00 Phosphorus 4.5 mg/dL (2.5-4.5) 07/16/18 06:00 Magnesium 2.1 mg/dL (1.7-2.2) 07/16/18 06:00 Total Bilirubin 0.5 mg/dL (0.2-1.3) 07/16/18 06:00 AST 24 U/L (14-36) 07/16/18 06:00 ALT 23 U/L (7-56) 07/16/18 06:00 Alkaline Phosphatase 81 U/L (38-126) 07/16/18 06:00 Lactate Dehydrogenase 421 U/L (333-699) 07/15/18 14:45 Total Creatine Kinase 92 U/L (35-230) 07/15/18 14:45 Troponin I < 0.01 ng/mL 07/16/18 06:00 Total Protein 7.4 g/dL (5.8-8.3) 07/16/18 06:00 Albumin 3.8 g/dL (3.0-4.8) 07/16/18 06:00 Globulin 3.6 gm/dL 07/16/18 06:00 Albumin/Globulin Ratio 1.1 (1.1-1.8) 07/16/18 06:00 Triglycerides 122 mg/dL (35-160) 07/15/18 14:45 Cholesterol 242 mg/dL (130-200) H 07/15/18 14:45 LDL Cholesterol Direct 195 mg/dL (0-129) H 07/15/18 14:45 HDL Cholesterol 31 mg/dL (29-60) 07/15/18 14:45 Free T4 1.10 ng/dL (0.78-2.19) 07/15/18 14:45 TSH 3rd Generation 1.06 mIU/mL (0.46-4.68) 07/15/18 14:45 Urine Color Light yellow (YELLOW) 07/15/18 15:40 Urine Appearance Clear (CLEAR) 07/15/18 15:40 Urine pH 6.0 (4.7-8.0) 07/15/18 15:40 Ur Specific [place] >= 1.030 (1.005-1.035) 07/15/18 15:40 Urine Protein 30 mg/dL (<30 mg/dL) H 07/15/18 15:40 Urine Glucose (UA) 250 mg/dL (NEGATIVE) H 07/15/18 15:40 Urine Ketones Negative mg/dL (NEGATIVE) 07/15/18 15:40 Urine Blood Moderate (NEGATIVE) H 07/15/18 15:40 Urine Nitrate Negative (NEGATIVE) 07/15/18 15:40 Urine Bilirubin Negative (NEGATIVE) 07/15/18 15:40 Urine Urobilinogen 0.2 E.U./dL (<1 E.U./dL) 07/15/18 15:40 Ur Leukocyte Esterase Negative Jose/uL (NEGATIVE) 07/15/18 15:40 Urine RBC 5 - 10 /hpf (0-2) H 07/15/18 15:40 Urine WBC 2 - 5 /hpf (0-6) 07/15/18 15:40 Ur Epithelial Cells 6 - 8 /hpf (0-5) H 07/15/18 15:40 Urine Bacteria Mod /hpf (NONE) 07/15/18 15:40 Urine Other Mucus /hpf 07/15/18 15:40 Attending/Attestation - Attestation I have personally seen and examined this patient.: Yes I have fully participated in the care of the patient.: Yes I have reviewed all pertinent clinical information, including history, physical exam and plan: Yes Notes (Text): 07/16/18 13:36 Attending note; Patient seen and examined with resident. Patient is alert and awake. No episodes of palpitation. monitoring coordinator reviewed. Patient is in normal sinus rhythm. Evaluated by sequins slinger today. currently denies any chest pain, shortness of breath. Denies any fevers, chills. Denies any urinary, bowel symptoms Patient is a 47-year-old female with PMH of HTN, obesity s/p gastric lap band, GERD, and PILAR on CPAP (admits non-compliance) who presents with complaint of palpitations and intermittent chest pain since last night. 1. Palpitations with chest discomfort; resolved. Check enzymes x3 negative. Preliminary echocardiogram is normal. Patient will be discharged home. Patient [place] [facility] [place]. Mo KING. 2. Hypertension; Continue home Norvasc 10 mg daily. Patient has normal blood pressure at home. Episodes of elevated blood pressure in the doctor's office possibly due to whitecoat hypertension. Patient advised to follow-up with PMD for further BP medication adjustment. Advised to avoid hydralazine. 3. Sleep Apnea; continue CPAP. Compliance insisted in detail. 4. HyperCholesterolemia; patient agreed to go on strict cholesterol control diet and repeat fasting lipid profile. Advised to start medication hypercholesterolemia does not improve. 5. UA is positive for red cells; patient denies any hematuria or urinary symp toms. Advised to follow-up repeat UA in doctor's office. Discharge home today. Follow-up with PMD for repeat glucose level, lipid profile and UA next week. Patient will get stress test next week. follow up With PMD Dr. Bernal.
--- NOTE | 2018-07-16 16:02 | CARD ---
APPROVED REPORT Date of service: 07/16/2018 EXAM: Two-dimensional and M-mode echocardiogram with Doppler and color Doppler. INDICATION Hypertension/HCVD Palpitations CARDIAC FAMILY HISTORY 2D DIMENSIONS Left Atrium (2D)3.2 (1.6-4.0cm)IVSd1.0 (0.7-1.1cm) LVDd3.8 (3.9-5.9cm)PWd1.2 (0.7-1.1cm) LVDs2.5 (2.5-4.0cm)FS (%) 35.2 % LVEF (%)65.2 (>50%) M-Mode DIMENSIONS Aortic Root2.90 (2.2-3.7cm)Aortic Cusp Exc.2.00 (1.5-2.0cm) Aortic Valve AoV Peak Zlrgeqyn034.0cm/Kristen Peak GR.7mmHg Mitral Valve MV E Tiyehzxl46.3cm/sMV A Ocialyym11.7cm/sE/A ratio0.8 TDI E/Lateral E'0.0E/Medial E'0.0 Tricuspid Valve TR Peak Asrlroep473nd/sRAP [id number] Peak Gr.11mmHg [id number] LEFT VENTRICLE The left ventricle is normal size. There is normal left ventricular wall thickness. The left ventricular function is normal. The left ventricular ejection fraction is within the normal range. There is normal LV segmental wall motion. Transmitral Doppler flow pattern is Grade I-abnormal relaxation pattern. RIGHT VENTRICLE The right ventricle is normal size. There is normal right ventricular wall thickness. The right ventricular systolic function is normal. ATRIA The left atrium size is normal. The right atrium size is normal. AORTIC VALVE The aortic valve is normal in structure. No aortic regurgitation is present. There is no aortic valvular stenosis. MITRAL VALVE The mitral valve is normal in structure. There is no mitral valve regurgitation noted. There is no mitral valve stenosis. TRICUSPID VALVE The tricuspid valve is normal in structure. There is trace tricuspid regurgitation. PULMONIC VALVE The pulmonary valve is normal in structure. There is trace pulmonic valvular regurgitation. GREAT VESSELS The aortic root is normal in size. The IVC is normal in size PERICARDIAL EFFUSION There is no pericardial effusion. <Conclusion> The left ventricle is normal size. There is normal left ventricular wall thickness. The left ventricular function is normal. The left ventricular ejection fraction is within the normal range. There is normal LV segmental wall motion. Transmitral Doppler flow pattern is Grade I-abnormal relaxation pattern.
--- NOTE | 2018-07-16 19:07 | CARD ---
APPROVED REPORT Date of service: 07/16/2018 EKG Measurement Heart [id number] <Conclusion> Normal sinus rhythm Minimal voltage criteria for LVH, may be normal variant Borderline ECG
== END 2018-07-16 12:35 | disposition home or self-care (01) ==
LOC: ED 14:04 → ERH 16:38 → 2RNO 18:16
PROVIDERS: ADMIT Internal Medicine; ATTEND Internal Medicine
DX: R00.2 Palpitations (principal); I10 Essential (primary) hypertension; E78.00 Pure hypercholesterolemia, unspecified; D64.9 Anemia, unspecified; G47.33 Obstructive sleep apnea (adult) (pediatric); K21.9 Gastro-esophageal reflux disease without esophagitis; Z79.899 Other long term (current) drug therapy; Z91.19 Patient's noncompliance with other medical treatment and regimen; Z98.84 Bariatric surgery status; Z98.891 History of uterine scar from previous surgery; Z82.49 Family history of ischemic heart disease and other diseases of the circulatory system
CPT/HCPCS: 36415; 71045; 80053; 80061; 81001; 81025; 82550; 83615; 83735; 84100; 84439; 84443; 84484; 85025; 85378; 93005; 93306; 94660; 99285; G0378; J7030